=== PATIENT | female | born 1955 | race Caucasian/White ===

== ENCOUNTER 2023-09-22 08:25 | Day surgery (SDC) | payer MEDICARE ==
[~2023-09-22] VITALS: Ht 170.2 cm; Wt 85.3 kg
[~2023-09-22 08:25] MED LIST: AREDS PO; BENICAR HCT1 TA2 PO; CRESTOR20 MG PO; D31000 UNIT PO; IS-ZC 50 50 MG1 TAB PO; LEVOTHYROXIN137 MCG PO; MELOXICAM15 MG PO; PEPCID20 MG PO; PROBIOTI2 PO
[2023-09-22] MEDS ORDERED: FAMOTIDINE 10MG/ML 2ML SDV IV ONE (08:33)
[2023-09-22] MEDS ORDERED: LACTATED RINGER'S 1,000 ML IV ONE (08:34)
[2023-09-22 11:17] VITALS: BP 131/84
[2023-09-22] MEDS ORDERED: PROPOFOL 200 MG/20 ML VIAL IV ONE (15:20)
[2023-09-22] MEDS ORDERED: LIDOCAINE HCL 2% 2ML SDV IV ONE (15:20)
[2023-09-22] MEDS ORDERED: GLYCOPYRROLATE 0.2 MG/ML IV ONE (15:20)
== END 2023-09-22 11:36 | disposition home or self-care (01) ==
LOC: ENDO 08:25 → ORM 13:30
PROVIDERS: ATTEND Internal Medicine Gastroenterology
PROC: 0DBK8ZX Excision of Ascending Colon, Via Natural or Artificial Opening Endoscopic, Diagnostic (ICD-10-PCS; principal; 2023-09-22)
PROC: 0DBL8ZX Excision of Transverse Colon, Via Natural or Artificial Opening Endoscopic, Diagnostic (ICD-10-PCS; 2023-09-22)
PROC: 0DBN8ZX Excision of Sigmoid Colon, Via Natural or Artificial Opening Endoscopic, Diagnostic (ICD-10-PCS; 2023-09-22)
PROC: 0DBP8ZX Excision of Rectum, Via Natural or Artificial Opening Endoscopic, Diagnostic (ICD-10-PCS; 2023-09-22)
PROC: 0DBM8ZX Excision of Descending Colon, Via Natural or Artificial Opening Endoscopic, Diagnostic (ICD-10-PCS; 2023-09-22)
DX: K55.9 Vascular disorder of intestine, unspecified (principal); K57.30 Diverticulosis of large intestine without perforation or abscess without bleeding; K64.8 Other hemorrhoids; K31.89 Other diseases of stomach and duodenum; K62.1 Rectal polyp; I10 Essential (primary) hypertension; E03.9 Hypothyroidism, unspecified; E78.5 Hyperlipidemia, unspecified